=== PATIENT | female | born 1965 | race African-American/Black ===

== ENCOUNTER 2020-04-01 09:56 | Emergency (ER) | payer MEDICARE, OTHER, SELFPAY ==
--- NOTE | ~2020-04-01 | XR_ITS ---
EXAMINATION: XR chest 1V portable EXAM DATE: 04/01/2020 10:42 INDICATION: Shortness of breath/cough 1 week. TECHNIQUE: Portable AP frontal chest x-ray was obtained. There is no prior study for comparison. FINDINGS: There is bilateral lower lung zone ill-defined patchy regions of acute airspace disease, at electasis and/or pneumonia. Recommend testing for possibility of COVID pneumonia. The lungs are otherwise clear. There are no pleural effusions. The cardiomediastinal silhouette is within normal limits. There is no pneumothorax suspected. The bones and soft tissues are unremarkab le. IMPRESSION: Bilateral atelectasis and/or pneumonia. Recommend testing for possibility of COVID pneumo davon. Reviewed, dictated and finalized at location B. TAL ASSISTANT IMPRESSION: Bilateral atelectasis and/or pneumonia. Recommend testing for possi bility of COVID pneumonia.
--- NOTE | 2020-04-01 09:59 | ECG_ITS ---
Measurements Intervals [place] Rate: 96 P: 50 ND: 163 QRS: 16 QRSD: 72 T: 20 QT: 323 QTc: 408 Interpretive Statements SINUS RHYTHM POSSIBLE LEFT ATRIAL ENLARGEMENT RSR' IN V1 OR V2, PROBABLY NORMAL VARIANT BORDERLINE ECG Electronically Signed On 04-01-2020 10:40:47 VETERINARY PRACTITIONER by Chang Santana D.O.
[2020-04-01 10:05] VITALS: BP 144/90; PULSE 101; RESP 22; TEMP 36.4; O2SAT 94
[2020-04-01 10:17] VITALS: PULSE 95
[2020-04-01 10:30] LABS: Hematocrit 35.2 % (37.0-47.0); Hemoglobin 11.6 g/dL (12.0-15.0); Mean Corpuscular Hemoglobin 25.3 pg (26-34); Mean Corpuscular Volume 76.9 fl (80-100); Mean Platelet Volume 9.2 fl (7.4-10.4); Platelet Count Result 360 k/mm3 (150-375); Red Blood Count 4.58 M/mm3 (4.2-5.4); Red Cell Distribution Width 15.2 % (11.5-14.5); White Blood Count 5.2 K/mm3 (4.5-10.0)
[2020-04-01 10:36] LABS: Lymphocytes Absolute Manual 0.93 K/mm3 (1.1-4.5); Monocytes Absolute Manual 0.62 K/mm3 (0.1-0.90); Monocytes Percent Manual 12 % (3-9); Neutrophils Percent Manual 70 % (46-73); Ovalocytes 1+ (NORMAL); Platelet Estimate Adequate (Adequate); Total Cells Counted 100
[2020-04-01 10:37] LABS: Anisocytosis 1+ (NORMAL)
[2020-04-01 10:42] LABS: Alanine Aminotransferase 21 U/L (4-35); Albumin Level 4.5 g/dL (3.5-5.1); Alkaline Phosphatase 60 U/L (38-126); Anion Gap 5 mmol/L (8-16); Aspartate Amino Transferase 34 U/L (14-36); Bilirubin,Total 0.5 mg/dL (0.2-1.3); Blood Urea Nitrogen 9 mg/dL (7-17); Carbon Dioxide 30 mmol/L (22-30); Chloride 99 mmol/L (98-107); Estimated CRCL calculation 66 ml/min; Estimated Glomerular Filt Rate > 60; Glucose 95 mg/dL (65-105); Potassium 4.5 mmol/L (3.4-5.0); Sodium 134 mmol/L (137-145)
[2020-04-01 10:48] VITALS: BP 138/95; PULSE 94; RESP 29; O2SAT 95
[2020-04-01 10:56] LABS: Add Urine Microscopic? YES; Appearance Urine Clear (Clear); Bacteria Urine Trace /hpf; Bilirubin Urine Negative (Negative); Blood Urine Negative (Negative); Color Urine Straw (Yellow); Glucose Urine UA Negative (Negative); Ketones Urine Negative (Negative); Leukocyte Esterase Ur Negative LEU/UL (Negative); Nitrate Urine Negative (Negative); Protein Urine Negative (Negative); RBC Urine 0-2 /hpf (0-2); Specific Grav Ur 1.006 (1.001-1.035); Squamous Epithelial Cell Urine Rare /hpf (Few); Urobilinogen Urine Negative mg/dL (<2.0); WBC Urine 0-3 /hpf
--- NOTE | 2020-04-01 11:32 | ED.GENADULT ---
HPI - General Adult General Chief complaint: Shortness of Breath/Dyspnea Stated complaint: SOB Time Seen by Provider: 04/01/20 10:10 Source: patient Mode of arrival: ambulatory Limitations: no limitations History of Present Illness HPI narrative: Patient presents with chief complaint of fatigue, cough, shortness of breath over the past week. Patient states she has had some mild headache but feels it may be due to the cough. Patient denies fever or body aches or loss of taste or smell. Patient denies pain with inspiration or calf pain. Patient was seen at the urgent care prior to coming to this emergency department and tested for Covid but was told that she should come to the emergency department for evaluation due to oxygen saturation of 95%. Patient denies chest pain, vomiting, diarrhea, coughing up blood, or any other symptoms. Patient has chronic medical conditions including hypertension and low vitamin D level. Related Data Home Medications Medication Instructions Recorded Confirmed Calcium with Vitamin D 04/01/20 ascorbic acid (vitamin C) 04/01/20 metoprolol succinate 50 mg PO DAILY 04/01/20 04/01/20 Allergies Allergy/AdvReac Type Severity Reaction Status Date / Time citalopram [From Celexa] Allergy Hallucinati Verified 04/01/20 10:16 ng duloxetine [From Cymbalta] Allergy Unknown Verified 04/01/20 10:17 latex Allergy Rash Verified 04/01/20 10:17 levofloxacin [From Levaquin] Allergy Anaphylaxis Verified 04/01/20 10:15 nickel Allergy Other Verified 04/01/20 10:17 shellfish derived Allergy Anaphylaxis Verified 04/01/20 10:17 ct dye Allergy Hives Uncoded 04/01/20 10:17 Review of Systems Review of Systems: Narrative: CONSTITUTIONAL: Denies fever, chills, or sweats. EYES: Denies visual changes, redness, or discharge. ENT: Denies rhinorrhea, congestion, sore throat, or otalgia. CARDIOVASCULAR: Denies chest pain, palpitations, or edema. RESPIRATORY: Reports cough and mild dyspnea. GASTROINTESTINAL: Denies abdominal pain, nausea, vomiting, or diarrhea. GENITOURINARY: Denies dysuria or hematuria. SKIN: Denies rash or itching. MUSCULOSKELETAL: Denies back pain, joint pain, or myalgia. NEUROLOGIC: Denies headache, numbness, dizziness, or weakness. PSYCHIATRIC: Denies anxiety or depression. PMFSH Social History Social History Gender identity (if verbalized by the patient): Female Exam Narrative: Exam Narrative: GENERAL: Well-appearing, well-nourished, and in no acute distress. Patient does not appear toxic. HEAD: Normocephalic, atraumatic. EYES: PERRLA and EOMI. NECK: Supple. No adenopathy or masses. CHEST: Clear to auscultation. No respiratory distress. No wheezes rales or rhonchi HEART: Regular rate and rhythm. EXTREMITIES: Normal range of motion. No edema. SKIN: Warm, dry, no rash. NEURO: No focal deficits. Alert and oriented x3. PSYCH: Normal mood and affect. Course Vital Signs Vital signs: Vital Signs Temperature 97.6 F 04/01/20 10:05 Pulse Rate 101 H 04/01/20 10:05 Respiratory Rate 22 H 04/01/20 10:05 Blood Pressure 144/90 H 04/01/20 10:05 Pulse Oximetry 94 04/01/20 10:05 Temperature 97.6 F 04/01/20 10:05 Pulse Rate 97 04/01/20 11:41 Respiratory Rate 30 H 04/01/20 11:41 Blood Pressure 113/84 04/01/20 11:41 Pulse Oximetry 94 04/01/20 11:41 Medical Decision Making MDM Narrative Medical decision making narrative: Discussed with patient her x-ray findings consistent with the likelihood of her having Covid. Patient oxygenation is 96% on room air. Even with ambulation she does not drop below 92%. Patient states that she feels comfortable going home. However she states that she would like something for cough as the coughing fits causes her respiratory rate to increase. She has been told to return to the ER for further evaluation if she develops worsening shortness of breath, pain with inspiration, chest pain, or any other emergent symptoms. Patient sta
[2020-04-01 11:41] VITALS: BP 113/84; PULSE 97; RESP 30; O2SAT 94
[2020-04-01] MEDS: BENZONATATE 100 MG CAPSULE 200 MG PO (12:04)
[2020-04-01 12:30] VITALS: BP 123/88; PULSE 95; RESP 35; O2SAT 96
== END 2020-04-01 12:34 | disposition home or self-care (01) ==
PROVIDERS: Physician Assistant; Emergency Provider Emergency Medicine
DX: B34.9 Viral infection, unspecified (principal); Z20.822 Contact with and (suspected) exposure to COVID-19; I10 Essential (primary) hypertension; R94.31 Abnormal electrocardiogram [ECG] [EKG]; R91.8 Other nonspecific abnormal finding of lung field
CPT/HCPCS: 36415; 71045; 80053; 81001; 85025; 93005; 99283; A9270

== ENCOUNTER 2021-04-12 12:51 | Emergency (ER) | payer MEDICARE, OTHER, SELFPAY ==
--- NOTE | ~2021-04-12 | CT_ITS ---
EXAMINATION: CT brain wo con DATE: 04/12/2021 17:15 INDICATION: Dizziness TECHNIQUE: Computed tomography (CT) of the head was performed without intravenous contrast. The mA wa s adjusted according to patient size. Iterative reconstruction technique was employed. Exam dose: 60 5.33 mGy-cm total exam DLP. COMPARISON: None FINDINGS: No intracranial mass lesion or hemorrhage or cerebrovascular accident. No midline shift or mass effec t effect. Normal ventricular size. No subdural or epidural hematoma. The orbital contents appear normal. Small inner table bone projection or calcified meningioma in the high right frontal area without surrounding mass effect or edema. No fracture or bone destruction of the cranial vault. No skull fracture. The mastoid air cells and included paranasal sinuses are unrema rkable. IMPRESSION: No significant abnormality Reviewed, dictated and finalized at [facility]. Reviewed, dictated and finalized at location A. STICS SPECIALIST IMPRESSION: No significant abnormality
[2021-04-12 13:12] VITALS: BP 152/103; PULSE 92; RESP 16; TEMP 37.5; O2SAT 100
--- NOTE | 2021-04-12 13:16 | ECG_ITS ---
Measurements Intervals [place] Rate: 88 P: 43 CO: 168 QRS: 20 QRSD: 72 T: 44 QT: 332 QTc: 403 Interpretive Statements SINUS RHYTHM ST ELEVATION IN INFERIOR LEADS- PROBABLY EARLY REPOLARIZATION BASELINE WANDER- V2, V4-V5 BORDERLINE ECG Electronically Signed On 04-12-2021 13:34:42 CONNIE SCRATCHER by Chang Santana D.O.
[2021-04-12 15:34] VITALS: BP 145/86; PULSE 82; TEMP 37.9; O2SAT 99
[2021-04-12 16:19] VITALS: PULSE 84
[2021-04-12] MEDS: SODIUM CHLORIDE 0.9% IV 1,000 ML 150 ML IV CONT (16:52)
[2021-04-12] MEDS: ONDANSETRON INJ 4 MG/2 ML VIAL IV PUSH ×2 (16:52→19:50)
[2021-04-12] MEDS: MORPHINE SULFATE (*CRX) 4 MG/ML INJ IV PUSH (16:52)
[2021-04-12 17:03] LABS: Basophils Percent Auto 0.6 % (0.2-1.2); Eosinophils Absolute Auto 0.3 K/mm3 (0-0.3); Eosinophils Percent Auto 4.1 % (0-4.4); Hematocrit 35.3 % (37.0-47.0); Hemoglobin 11.8 g/dL (12.0-15.0); Immature Granulocyte Absolute 0.02 K/mm3 (0.00-0.031); Immature Granulocyte Percent A 0.3 % (0-0.5); Lymphocytes Absolute Auto 1.92 K/mm3 (0.9-3.2); Lymphocytes Percent Auto 27.4 % (18.3-44.2); Mean Corpuscular HGB Conc 33.4 g/dl (32-36); Mean Corpuscular Hemoglobin 26.3 pg (26-34); Mean Corpuscular Volume 78.8 fl (80-100); Mean Platelet Volume 9.2 fl (7.4-10.4); Monocytes Absolute Auto 0.4 K/mm3 (0.1-0.6); Monocytes Percent Auto 5.8 % (2.6-8.5); Neutrophils Absolute Auto 4.3 K/mm3 (1.3-6.7); Neutrophils Percent Auto 61.8 % (45.5-73.1); Platelet Count Result 348 k/mm3 (150-375); Red Blood Count 4.48 M/mm3 (4.2-5.4); Red Cell Distribution Width 15.3 % (11.5-14.5)
[2021-04-12 17:15] LABS: Alanine Aminotransferase 24 U/L (4-35); Albumin Level 4.9 g/dL (3.5-5.1); Alkaline Phosphatase 58 U/L (38-126); Anion Gap 9 mmol/L (8-16); Aspartate Amino Transferase 33 U/L (14-36); Bilirubin,Total 0.5 mg/dL (0.2-1.3); Blood Urea Nitrogen 10 mg/dL (7-17); Calcium 9.5 mg/dL (8.4-10.2); Carbon Dioxide 28 mmol/L (22-30); Chloride 101 mmol/L (98-107); Estimated CRCL calculation 69 ml/min; Estimated Glomerular Filt Rate > 60; Glucose 92 mg/dL (65-110); Potassium 4.5 mmol/L (3.4-5.0); Sodium 138 mmol/L (137-145)
[2021-04-12 19:32] VITALS: BP 114/74; PULSE 87; RESP 20; O2SAT 97
[2021-04-12] MEDS: LORazepam INJ (*CRX) 2 MG/ML VIAL 0.5 MG IV PUSH (19:50)
--- NOTE | 2021-04-12 19:57 | ED.GENADULT ---
HPI - General Adult General Chief complaint: Weakness Stated complaint: tay, cold, fatigue Time Seen by Provider: 04/12/21 16:17 Source: patient Mode of arrival: ambulatory Limitations: no limitations History of Present Illness HPI narrative: 55-year-old with a history of hypertension here with complaints of elevated blood pressure for last few days. Patient states that she is seeing her primary doctor at [facility] follow-up the dose of metoprolol to 50 mg daily ever since then she has been having headache. She denies any fever or chills. But complaints of dizziness and nausea. No history of chest pain or shortness of breath. Onset (ago): day(s) (1) Location: head Radiation: non-radiation Severity: moderate Quality: aching Pain Consistency: constant Relieving factors: none Exacerbating factors: none Associated symptoms: headaches, nausea/vomiting and weakness Treatments prior to arrival: none Related Data Home Medications Medication Instructions Recorded Confirmed Calcium with Vitamin D 1 tablet DAILY 04/01/20 ascorbic acid (vitamin C) 500 mg BID 04/01/20 metoprolol succinate 50 mg PO DAILY 04/01/20 04/01/20 Allergies Allergy/AdvReac Type Severity Reaction Status Date / Time citalopram [From Celexa] Allergy Hallucinati Verified 04/12/21 16:16 ng duloxetine [From Cymbalta] Allergy Unknown Verified 04/12/21 16:16 latex Allergy Rash Verified 04/12/21 16:16 levofloxacin [From Levaquin] Allergy Anaphylaxis Verified 04/12/21 16:16 nickel Allergy Other Verified 04/12/21 16:16 shellfish derived Allergy Anaphylaxis Verified 04/12/21 16:16 ct dye Allergy Hives Uncoded 04/12/21 16:16 Review of Systems Review of Systems: All systems reviewed & are unremarkable except as noted in HPI and below Constitutional: Constitutional: Reports no additional constitutional complaints Eyes: Eyes: Reports no additional eye complaints ENT: Reports system reviewed and no additional complaints, except as documented Cardiovascular: Cardiovascular: Reports no additional cardiovascular complaints Respiratory: Respiratory: Reports no additional respiratory complaints Gastrointestinal: Gastrointestinal: Reports as per HPI Musculoskeletal: Musculoskeletal: Reports no additional musculoskeletal complaints Neurologic: Reports as per HPI Psychiatric: Psychiatric: Reports no additional psychiatric complaints PMFSH Social History Social History Gender identity (if verbalized by the patient): Female Exam Narrative: GENERAL: Well-appearing, well-nourished, and in no acute distress. HEAD: Normocephalic, atraumatic. EYES: PERRLA and EOMI. NECK: Supple. CHEST: Clear to auscultation. No respiratory distress. HEART: Regular rate and rhythm. No murmur heard. Normal peripheral pulses. ABDOMEN: Soft, nontender, nondistended, normal active bowel sounds. EXTREMITIES: Normal range of motion. No edema. SKIN: Warm, dry, no rash. NEURO: No focal deficits. Alert and oriented x3. PSYCH: Normal mood and affect. Course Course Emergency Course: Inform patient about her lab work, CT findings. Advised her to take medications as prescribed, follow-up with her primary doctor. Vital Signs Vital signs: Vital Signs Temperature 37.5 C 04/12/21 13:12 Pulse Rate 92 04/12/21 13:12 Respiratory Rate 16 04/12/21 13:12 Blood Pressure 152/103 H 04/12/21 13:12 Pulse Oximetry 100 04/12/21 13:12 Temperature 37.9 C H 04/12/21 15:34 Pulse Rate 87 04/12/21 19:32 Respiratory Rate 20 04/12/21 19:32 Blood Pressure 114/74 04/12/21 19:32 Pulse Oximetry 97 04/12/21 19:32 Medical Decision Making Vital Signs Vital Signs: Vital Signs Temperature 37.5 C 04/12/21 13:12 Pulse Rate 92 04/12/21 13:12 Respiratory Rate 16 04/12/21 13:12 Blood Pressure 152/103 H 04/12/21 13:12 Pulse Oximetry 100 04/12/21 13:12 Temperature 37.9 C H 04/12/21 15:34
[2021-04-12 20:35] VITALS: BP 125/83; PULSE 95; RESP 23; O2SAT 97
== END 2021-04-12 20:36 | disposition home or self-care (01) ==
PROVIDERS: Emergency Provider Family Medicine
DX: R51.9 Headache, unspecified (principal); R53.1 Weakness; I10 Essential (primary) hypertension; R94.31 Abnormal electrocardiogram [ECG] [EKG]
CPT/HCPCS: 36415; 70450; 80053; 85025; 93005; 96361; 96374; 96375; 96376; 99284; J2060; J2270; J2405; J7030

== ENCOUNTER 2023-02-15 04:05 | Emergency (ER) | payer MEDICARE, OTHER, SELFPAY ==
--- NOTE | ~2023-02-15 | XR_ITS ---
Left Shoulder Technique: AP and axillary views were obtained. Clinical History: Pain Findings: No fracture or dislocation is seen. Osseous alignment is anatomic. The glenohumeral and acr omioclavicular joint spaces are preserved. Soft tissues are unremarkable. Impression: Unremarkable left shoulder radiographs. Reviewed, dictated and finalized at [facility]. EHOLD PERSONAL ASSISTANT Impression: Unremarkable left shoulder radiographs.
[2023-02-15 04:09] VITALS: BP 150/97; PULSE 86; RESP 18; TEMP 36.8; O2SAT 97
--- NOTE | 2023-02-15 07:27 | ECG_ITS ---
Measurements Intervals [place] Rate: 69 P: 46 [place]: 174 QRS: 10 QRSD: 80 T: 25 QT: 380 QTc: 408 Interpretive Statements SINUS RHYTHM POSSIBLE LEFT ATRIAL ENLARGEMENT [-0.1mV P-WAVE IN V1/V2] POSSIBLE RIGHT VENTRICULAR CONDUCTION DELAY [RSR (QR) IN V1/V2] EARLY REPOLARIZATION ABNORMAL ECG COMPARED TO ECG 04/12/2021 13:22:20 NO SIGNIFICANT CHANGE Electronically Signed On 02-15-2023 13:26:33 SUPERVISOR WELDING EQUIPMENT REPAIRER by Jb Vega M.D.
--- NOTE | 2023-02-15 07:56 | ED.EXTPRO ---
HPI - Extremity Problem General Chief complaint: Extremity Problem,Nontraumatic Stated complaint: left shoulder pain Time Seen by Provider: 02/15/23 07:00 History of Present Illness HPI Narrative: Patient has been having chronic left shoulder pain for months to years, has not seen a doctor for it until today when she finally got tired of it, it is worse with certain movements; no chest pain or back pain. Related Data Home Medications Medication Instructions Recorded Confirmed Calcium with Vitamin D 1 tablet DAILY 04/01/20 ascorbic acid (vitamin C) 500 mg BID 04/01/20 metoprolol succinate 50 mg 50 mg PO DAILY 04/01/20 04/01/20 tablet,extended release 24 hr Allergies Allergy/AdvReac Type Severity Reaction Status Date / Time citalopram [From Celexa] Allergy Hallucinati Verified 02/15/23 06:55 ng duloxetine [From Cymbalta] Allergy Unknown Verified 02/15/23 06:55 latex Allergy Rash Verified 02/15/23 06:55 levofloxacin [From Levaquin] Allergy Anaphylaxis Verified 02/15/23 06:55 nickel Allergy Other Verified 02/15/23 06:55 shellfish derived Allergy Anaphylaxis Verified 02/15/23 06:55 ct dye Allergy Hives Uncoded 04/12/21 16:16 Review of Systems Review of Systems: CONST: No fever. HEENT: No sore throat C/V: No chest pain RESP: No cough GI: No abdominal pain : No flank pain M/S: left shoulder pain SKIN: No rash. NEURO: [No focal numbness or weakness] PSYCH: [No depression] [facility] Social History Social History Gender identity (if verbalized by the patient): Female Exam Narrative: EXAMINATION OF ORGAN SYSTEMS/BODY AREAS: Constitutional: Vital signs per nursing GENERAL:[No acute distress, non-toxic appearing.] HEAD: Normal with no signs of head trauma. EYES: EOMI, conjunctiva normal ENT: Hearing grossly intact LUNGS: Nonlabored breathing. HEART: [Regular rate and rhythm], normal radial pulses ABD: [Soft], [nontender to palpation] EXT: Slight diminished ROM of left shoulder from pain; no obvious deformity; +Llanos SKIN: [No rashes or lesions.] NEURO: [Alert and oriented x 3. No gross focal sensory or strength deficits.] PSYCH: Normal affect Course Vital Signs Vital signs: Vital Signs Temperature 98.3 F 02/15/23 04:09 Pulse Rate 86 02/15/23 04:09 Respiratory Rate 18 02/15/23 04:09 Blood Pressure 150/97 H 02/15/23 04:09 Pulse Oximetry 97 02/15/23 04:09 Oxygen Delivery Room Air 02/15/23 04:09 Temperature 98.3 F 02/15/23 04:09 Pulse Rate 86 02/15/23 04:09 Respiratory Rate 18 02/15/23 04:09 Blood Pressure 150/97 H 02/15/23 04:09 Pulse Oximetry 97 02/15/23 04:09 Oxygen Delivery Room Air 02/15/23 04:09 MDM - Extremity (Nontraumatic) MDM Narrative Medical decision making narrative: 57-year-old female presenting with chronic left shoulder pain, under evaluation she is neurovascularly intact, with reproduction of the pain with certain movements, positive Llanos, I suspect likely MSK, shoulder x-ray obtained on my interpretation negative for acute fracture, no dislocation, stable for discharge with follow-up to Orthopedics. Patient agreeable to this plan. Discharge Plan Discharge Clinical Impression: Left shoulder pain Patient Disposition: Home, Self-Care Condition: Stable Instructions: Antibiotic Form, Shoulder Pain (ED) Additional Instructions: Please follow up with your doctor; you can always return for any further issues. Prescriptions: No Action metoprolol succinate 50 mg Tablet Extended Release 24 Hr 50 mg PO DAILY Calcium with Vitamin D 1 tablet DAILY ascorbic acid (vitamin C) 500 mg BID meclizine 12.5 mg tablet 12.5 mg PO TID PRN (Reason: dizziness) Qty: 21 0RF ondansetron 4 mg tablet,disintegrating 4 mg PO Q6-8H PRN (Reason: nausea and vomiting) Qty: 14 0RF gsvnapketv-kuxrgjjzmgbbu-oico 50-325-40 mg tablet 1
== END 2023-02-15 08:02 | disposition home or self-care (01) ==
LOC: ANHED 07:50
PROVIDERS: Emergency Provider Emergency Medicine
DX: M25.512 Pain in left shoulder (principal); G89.29 Other chronic pain
CPT/HCPCS: 73030; 93005; 99283

== ENCOUNTER 2024-11-21 21:56 | Emergency (ER) | payer MEDICARE, OTHER, SELFPAY ==
--- OUTSIDE RECORDS SUMMARY | 2024-11-21 21:59 | XMS_ITS | Clinical Summary ---
Author Organization [facility] Address [address] [place] [address] Phone Care Team Providers Care Mobile Equipment Mechanic Name Role Phone Deniz Randolph MD Unavailable [phone] Provider, Not On File Primary Care Provider Unav ailable Allergies Active Allergy Reactions Criticality Noted Date Comments Citalopram Hydrobromide Other (see Comments) Hallucinations Iodinated Contrast Media Other (see Comments) 03/27/2019 Hives, swelling Latex Other (see Comments) 03/27/2019 Rash, itching, redness Levofloxacin Other (see Comments) 03/27/2019 Closed airway Shellfish Allergy Other (see Comments) 03/27/19 20 Closed airway Medications ascorbic acid (ASCORBIC ACID) 500 MG Tablet Take 500 mg by mouth 2 times daily. Active Cholecalciferol (VITAMIN D3 PO) Take 1,000 mg by mouth. Active fish oil-omega-3 fatty acids 1000 MG Capsule Take 1,000 mg by mouth 2 times daily. Active metoprolol tartrate (LOPRESSOR) 25 MG Tablet Take 25 mg by mouth daily. Active fexofenadine (MOOSE) 60 MG Tablet Take 60 mg by mouth 2 times daily. Active olopatadine (PATANOL) 0.1 % Solution Place 1 Drop in affected eye(s) 2 times daily as needed. Active cycloSPORINE (RESTASIS) 0.05 % Emulsion Place 1 Drop in affected eye(s) 2 times daily. Active simethicone (MYLICON) 80 MG Chewable Tablet Take 80 mg by mouth every 6 hours as needed. Active Active Problems Problem Noted Date Diagnosed Date Malignant neoplasm of centra l portion of breast in female, estrogen receptor negative 03/27/2019 Family History Medical History Relation Name Comments Cancer Maternal Grandmother Relation Name Status Comments Maternal Grandmother Social History Tobacco Use Types Packs/Day Years Used Date Smoking Tobacco: Never Smokeless Tobacco: Never Alcohol Use Standard Drinks/Week Comments Never 0 (1 standard drink = 0.6 oz pur e alcohol) AUDIT-C Answer Date Recorded Frequency of Alcohol Consumption Never 03/27/2019 Average Number of Drinks Not on file 020 Frequency of Binge Drinking Not on file 03/18 PHQ-2 Answer Date Recorded PHQ-2 Score 0 03/27/2019 Comments Unknown Sex and Gender Information Value Date Recorded Sex Assigned at Not on file Legal Sex Female 12:57 PM AVIATION NEUROPSYCHOLOGIST Gender Identity Not on file Sexual Orientation Not on file Last Filed Vital Signs Vital Sign Reading Time Taken Comments Blood Pressure 158/90 03/27/2019 9:14 AM AVIATION NEUROPSYCHOLOGIST Pulse 74 03/27/2019 9:14 AM AVIATION NEUROPSYCHOLOGIST Temperature 36.6 C (97.8 F) 03/27/2019 9:14 AM AVIATION NEUROPSYCHOLOGIST Respiratory Rate 19 03/27/2019 9:14 AM AVIATION NEUROPSYCHOLOGIST Oxygen Saturation 97% 03/27/2019 9:14 AM AVIATION NEUROPSYCHOLOGIST Inhaled Oxygen Concentration - - Weight 83 kg (183 lb) 03/27/2019 9:14 AM AVIATION NEUROPSYCHOLOGIST Height 162.6 cm (5' 4) 03/27/2019 9:14 AM AVIATION NEUROPSYCHOLOGIST Body Mass Index 31.41 03/27/2019 9:14 AM AVIATION NEUROPSYCHOLOGIST Plan of Treatment Health Maintenance Due Date Last Done Comments Hepatitis C Virus (HCV) Screening 1965 TdaP Immunization 1965 SARS-COV-2 Immunization (#1) 05/15/1972 Mammogram 05/15/1977 Hepatitis B Immunization (1 of 3 - 19+ 3-dose series) 05/15/1986 Pneumococcal Immunization (5 0+ years) (1 of 2 - PCV) 05/15/1986 Zoster Immunization (1 of 2) 05/15/1986 Cologuard 05/15/2012 Colonoscopy 05/15/2012 Colorectal Cancer Screening 05/15/2012 Immunochemical Fecal Occult Blood 05/15/2012 Influenza Immunization (#1) 2024 Respiratory Syncytial Virus (RSV) Immunization (Adult) (1 - 1-dose 75+ series) 05/15/2042 Human Papillomavirus (HPV) Immunization Aged Out No longer eligible b ased on patient's age to complete this topic Meningococcal Immunization (ACWY) Aged Out No longer eligible based on patient's age to complete this topic Rotavirus Immunization Aged Out No lo nger eligible based on patient's age to complete this topic Insurance MEDICARE [facility] [employer] Care Teams Mobile Equipment Mechanic Relationship Specialty Start Date End Date Provider, Not On File [place] PCP - General 03/27/19 Deniz Randolph MD [address] [place] [phone] Consulting Physician Oncology 03/27/19
[2024-11-21 22:10] VITALS: BP 169/107; PULSE 96; RESP 18; TEMP 36.7; O2SAT 99
--- NOTE | 2024-11-21 22:35 | PC.NURSE ---
Pt approached triage desk stating tat she was going to leave and come back tomorrow due to wait times. Pt ambulated to ED exit with steady gait and no signs for concern at this time.
== END 2024-11-21 22:35 | disposition left against medical advice (07) ==
DX: S89.92XA Unspecified injury of left lower leg, initial encounter (principal)
CPT/HCPCS: 99199

== ENCOUNTER 2024-11-22 06:00 | Emergency (ER) | payer MEDICARE, OTHER, SELFPAY ==
--- NOTE | ~2024-11-22 | XR_ITS ---
EXAMINATION: XR forearm LT 2V, 11/22/2024 9:00 CDT HISTORY: trauma COMPARISON: No comparisons available. Findings: No acute fracture or malalignment. No significant degenerative changes. Soft tissues unremarkable. Impression: No acute fracture or malalignment. Reviewed, dictated and finalized at location A. Impression: No acute fracture or malalignment.
--- NOTE | ~2024-11-22 | XR_ITS ---
EXAMINATION: XR knee LT 3V, 11/22/2024 9:00 CDT HISTORY: trauma COMPARISON: No comparisons available. Findings: No acute fracture or malalignment. No significant degenerative changes. Soft tissues unremarkable. Impression: No acute fracture or malalignment. Reviewed, dictated and finalized at location A. Impression: No acute fracture or malalignment.
--- NOTE | ~2024-11-22 | XR_ITS ---
EXAMINATION: XR elbow LT min 3V, 11/22/2024 9:00 CDT HISTORY: trauma COMPARISON: No comparisons available. Findings: No acute fracture or malalignment. No significant degenerative changes. Soft tissues unremarkable. Impression: No acute fracture or malalignment. Reviewed, dictated and finalized at location A. Impression: No acute fracture or malalignment.
--- NOTE | ~2024-11-22 | XR_ITS ---
EXAMINATION: XR wrist LT min 3V, 11/22/2024 9:00 CDT HISTORY: trauma COMPARISON: No comparisons available. Findings: No acute fracture or malalignment. No significant degenerative changes. Soft tissues unremarkable. Impression: No acute fracture or malalignment. Reviewed, dictated and finalized at location A. Impression: No acute fracture or malalignment.
[2024-11-22 06:20] VITALS: BP 152/95; PULSE 83; RESP 18; TEMP 36.8; O2SAT 100
--- OUTSIDE RECORDS SUMMARY | 2024-11-22 08:13 | XMS_ITS | Clinical Summary ---
Author Organization [facility] Address [address] [place] [address] Phone Care Team Providers Care Guard Dance Hall Name Role Phone Deniz Randolph MD Unavailable [phone] Provider, Not On File Primary Care Provider [...] on file Legal Sex Female 12:57 PM CHEMICAL CELL CHANGER Gender Identity Not on file Sexual Orientation Not on file Last Filed Vital Signs Vital Sign Reading Time Taken Comments Blood Pressure 158/90 03/27/2019 9:14 AM CHEMICAL CELL CHANGER Pulse 74 03/27/2019 9:14 AM CHEMICAL CELL CHANGER Temperature 36.6 C (97.8 F) 03/27/2019 9:14 AM CHEMICAL CELL CHANGER Respiratory Rate 19 03/27/2019 9:14 AM CHEMICAL CELL CHANGER Oxygen Saturation 97% 03/27/2019 9:14 AM CHEMICAL CELL CHANGER Inhaled Oxygen Concentration - - Weight 83 kg (183 lb) 03/27/2019 9:14 AM CHEMICAL CELL CHANGER Height 162.6 cm (5' 4) 03/27/2019 9:14 AM CHEMICAL CELL CHANGER Body Mass Index 31.41 03/27/2019 9:14 AM CHEMICAL CELL CHANGER Plan of Treatment Health Maintenance Due Date [...] age to complete this topic Insurance MEDICARE [facility] [employer] Care Teams Guard Dance Hall Relationship Specialty Start Date End Date Provider, Not On File [place] PCP - General 03/27/19 Deniz Randolph MD [address] [place] [phone] Consulting Physician Oncology 03/27/19
--- OUTSIDE RECORDS SUMMARY | 2024-11-22 08:13 | XMS_ITS | Clinical Summary ---
Author Organization [facility] Address [address] [place] [id number] Care Team Providers Care Strike Warfare/Missile Systems Officer Name Role Phone Lanie Clark MD Primary Care Provider [phone] Social History Tobacco Use Types Packs/Day Years Used Date Smoking Tobacco: Never Assessed Comments Unknown Sex and Gender Information Value Date Recorded Sex Assigned at Not on file Legal Sex Female 2:04 PM CDT Gender Identity Not on file Sexual Orientation Not on file Plan of Treatment Health Maintenance Due Date Last Done Comments Cervical Cancer Screening Pa p Smear (Age 30 to 64) Every 3 Years 1967 Colorectal Cancer Screening Colonoscopy (10 Years) 1967 Annual Physical 05/15/1970 Hepatitis C 05/15/1985 DTaP, Tdap and Td Vaccines ( 1 - Tdap) 05/15/1986 Hepatitis B Vaccines (1 of 3 - 19+ 3-dose series) 05/15/1986 Cervical Cancer Screening Pa p with HPV Testing (Age 30 to 64) Every 5 Years 05/15/1997 Cervical Cancer Screening with HPV 05/15/1997 Mammogram Screening 2007 Pneumococcal Vaccine: 50+ Ye ars (1 of 1 - PCV) 05/15/2017 Zoster Vaccines (1 of 2) 05/15/2017 COVID-19 Vaccine (2023-2 5 season) 2024 Meningococcal B Vaccine Aged Out No l onger eligible based on patient's age to complete this topic Meningococcal Vaccine Aged Out No michaelle walter eligible based on patient's age to complete this topic RSV Immunizations Under 20 Months Aged Out No longer eligible based on patient's age to complete this topic Insurance [facility] Care Teams Strike Warfare/Missile Systems Officer Relationship Specialty Start Date End Date Lanie Clark MD [address] [place] [address] PCP - General FAMILY PRACTICE 02/08/21
--- NOTE | 2024-11-22 08:32 | ED.GENADULT ---
HPI - General Adult General Chief complaint: Extremity Injury, Upper Stated complaint: Arm pain left earlier before seen Time Seen by Provider: 11/22/24 07:59 History of Present Illness HPI narrative: 59-year-old female presents to the emergency department for evaluation for left elbow left forearm and left wrist pain along with left knee pain. Patient reports a table fell and the contents on the table landed on her. Patient states she was having some left arm pain and iced it and thought that would help but patient states overnight she had a recurrence of the pain. Patient did not take any Tylenol or ibuprofen. Related Data Home Medications ?Medication ?Instructions ?Recorded ?Confirmed ?Last Taken ?Type Calcium with Vitamin D 1 tablet DAILY 04/01/20 Unknown History ascorbic acid (vitamin C) 500 mg BID 04/01/20 Unknown History metoprolol succinate 50 mg 50 mg PO DAILY 04/01/20 04/01/20 Unknown History tablet,extended release 24 hr Allergies Allergy/AdvReac Type Severity Reaction Status Date / Time citalopram (From Celexa) Allergy Hallucinati Verified 11/22/24 06:01 ng duloxetine (From Cymbalta) Allergy Unknown Verified 11/22/24 06:01 latex Allergy Rash Verified 11/22/24 06:01 levofloxacin (From Levaquin) Allergy Anaphylaxis Verified 11/22/24 06:01 nickel Allergy Other Verified 11/22/24 06:01 shellfish derived Allergy Anaphylaxis Verified 11/22/24 06:01 ct dye Allergy Hives Uncoded 11/22/24 06:01 Review of Systems Review of Systems: All systems reviewed & are unremarkable except as noted in HPI and below PMFSH Social History Social History Gender identity (if verbalized by the patient): Female Exam Narrative: APPEARANCE: Well appearing, no pain, no distress, well-nourished. HEAD: normocephalic, atraumatic. EYES: PERRLA/EOMI, conjunctivae clear. NOSE: Normal no drainage EARS:TMS clear with good light reflex. THROAT: Pharynx clear, no exudate. NECK: Supple. No adenopathy, no masses. RESPIRATORY: Airway patent, respirations nonlabored. Clear to auscultation bilaterally, no rales, rhonchi, wheezing. CARDIOVASCULAR: Regular rate and rhythm without murmurs rubs or gallops. ABDOMINAL: Soft, nontender, nondistended, normal bowel sounds MUSCULOSKELETAL: Mild tenderness to left elbow left forearm left rest with no deformity or ecchymosis. Patient does have tenderness to the left knee as well. NEURO: Alert. Cranial nerves II through XII intact. Good gait. Good coordination SKIN: Superficial lacerations to left chest Course Vital Signs Vital signs: Vital Signs Temperature 98.2 F 11/22/24 06:20 Pulse Rate 83 11/22/24 06:20 Respiratory Rate 18 11/22/24 06:20 Blood Pressure 152/95 H 11/22/24 06:20 Pulse Oximetry 100 11/22/24 06:20 Oxygen Delivery Room Air 11/22/24 06:20 Temperature 98.2 F 11/22/24 06:20 Pulse Rate 83 11/22/24 06:20 Respiratory Rate 18 11/22/24 06:20 Blood Pressure 152/95 H 11/22/24 06:20 Pulse Oximetry 100 11/22/24 06:20 Oxygen Delivery Room Air 11/22/24 06:20 Medical Decision Making MDM Narrative Medical decision making narrative: 59-year-old female presents emergency department for evaluation for left arm pain and left knee pain. X-rays were negative for acute fracture dislocation. Patient was updated results of workup. Patient was comfortable plan for discharge and close follow-up. Differential Diagnosis Differential Diagnosis: Forearm fracture, wrist fracture, knee fracture, contusions, abrasions Vital Signs Vital Signs: Vital Signs Temperature 98.2 F 11/22/24 06:20 Pulse Rate 83 11/22/24 06:20 Respiratory Rate 18 11/22/24 06:20 Blood Pressure 152/95 H 11/22/24 06:20 Pulse Oximetry 100 11/22/24 06:20 Oxygen Delivery Room Air 11/22/24 06:20 Temperature 98.2 F 11/22/24 06:20 Pulse Rate 83 11/22/24 06:20 Respiratory Rate 18 11/22/24 06:20 Blood Pressure 152/95 H 11/22/24 06:20 Pulse Oximetry 100 11/22/24 06:20 Oxygen Delivery Room Air 11/22/24 06:20 Imaging Data Radiologist's impression: Impressions Elbow X-Ray 11/22/24 10:36 Impression: No acute fracture or malalignment. Forearm X-Ray 11/22/24 10:36 Impression: No acute fracture or malalignment. Knee X-Ray 11/22/24 10:37 Impression: No acute fracture or malalignment. Wrist X-Ray 11/22/24 10:37 Impression: No acute fracture or malalignment. Discharge Plan Discharge Clinical Impression: Arm contusion, Contusion of knee Patient Disposition: Home Condition: Stable Instructions: Antibiotic Form Additional Instructions: Tylenol and ibuprofen for pain control. Have close follow-up with your primary care physician. If you have any worsening symptoms then please call or return to the emergency department. Patient Language: Polish Prescriptions: No Action metoprolol succinate 50 mg Tablet Extended Release 24 Hr 50 mg PO DAILY Calcium with Vitamin D 1 tablet DAILY ascorbic acid (vitamin C) 500 mg BID meclizine 12.5 mg tablet 12.5 mg PO TID PRN (Reason: dizziness) Qty: 21 0RF ondansetron 4 mg tablet,disintegrating 4 mg PO Q6-8H PRN (Reason: nausea and vomiting) Qty: 14 0RF xyysnzshpn-aamfdywupgbvk-zmew 50-325-40 mg tablet 1 tablet PO Q6H PRN (Reason: pain) Qty: 14 0RF Follow-up/Referrals: UNKNOWN,DOCTOR [Primary Care Provider]
[2024-11-22] MEDS: ACETAMINOPHEN 500 MG TABLET 1000 MG PO (09:08)
== END 2024-11-22 13:06 | disposition home or self-care (01) ==
PROVIDERS: Emergency Provider Emergency Medicine
DX: S40.022A Contusion of left upper arm, initial encounter (principal); S80.02XA Contusion of left knee, initial encounter; W20.8XXA Other cause of strike by thrown, projected or falling object, initial encounter
CPT/HCPCS: 73080; 73090; 73110; 73562; 99284; A9270